=== PATIENT | female | born 1980 | race African-American/Black ===

== ENCOUNTER → 2019-12-26 11:52 | Outpatient (CLI) | payer OTHER, SELFPAY ==
[2019-12-27 10:15] LABS: COVID19 Sendout NOT DETECTED (Not Detect)
== END ==
PROVIDERS: Visit Provider Physician Assistant
DX: Z01.812 Encounter for preprocedural laboratory examination (principal)
CPT/HCPCS: 87635

== ENCOUNTER 2019-12-29 13:06 | Day surgery (SDC) | payer OTHER, SELFPAY ==
[2019-12-29] VITALS (12 sets, daily range): BP systolic 105–132; BP diastolic 65–86; PULSE 59–109; RESP 9–18; TEMP 36.2–37.1; O2SAT 98–100; BMI 47.0
--- NOTE | 2019-12-29 | DI.RAD.S_ITS ---
PROCEDURE: XR LUMBAR SPINE 2-3V INDICATIONS: L5-S1 MICRODISCECTOMY TECHNIQUE: 2 views of the lumbar spine were acquired. COMPARISON: None. FINDINGS: Spot fluoroscopic images demonstrating surgical instrument with the tip projecting at the L5-S1 level. Dictated by: Justin Palafox M.D. on 12/30/2019 at 9:08 Approved by: Justin Palafox M.D. on 12/30/2019 at 9:09
--- NOTE | 2019-12-29 13:47 | SUR.PREOP ---
Pt states pain/numbness occasional to left calf and foot. No difficulties walking at this time
[2019-12-29] MEDS: GABAPENTIN 300 MG CAPSULE PO (13:54)
[2019-12-29] MEDS: ACETAMINOPHEN 325 MG TABLET 975 MG PO (13:54)
[2019-12-29] MEDS: LACTATED RINGERS 1,000 ML 42 ML IV ×2 (13:54→17:18)
--- NOTE | 2019-12-29 15:38 | P.HP_ITS ---
History of Present Illness History of Present Illness Date Patient Seen: 12/29/19 Time Patient Seen: 15:38 Chief complaint: [id number] LUMBAR DISCECTOMY Narrative: Ms. No is a 39 yo F with hx of chronic back pain and lumbar radiculopathy failing over 1 year of conservative management including 3 ISH L- spine. Patient has limitation performing activity of daily living. Patient History Family & Social History Social History: household members significant other Tobacco & Substance use: Smoking Status Never smoker alcohol intake current alcohol intake frequency a few times a month Substance Use Type does not use Meds Home Medications and Allergies Home Medications Medication Instructions Recorded Confirmed Type acetaminophen 1,000 mg PO Q6H PRN 12/29/19 12/29/19 History cyclobenzaprine 10 mg PO DAILY 12/29/19 12/29/19 History meloxicam 7.5 mg PO DAILY 12/29/19 12/29/19 History Allergies Allergy/AdvReac Type Severity Reaction Status Date / Time ciprofloxacin Allergy Intermediate Hives Verified 12/29/19 13:21 Exam Vital Signs (past 8 hours): - 12/29/19 13:32 Temperature 98.7 F Pulse Rate 77 Respiratory Rate 16 Blood Pressure 132/84 Pulse Oximetry 100 Oxygen Delivery Method Room Air Oxygen Flow Rate 0 Neuro Other: Right S1 dermatome with decreased sensibility, + straight leg raise to RLE. Motor strength is 4/5 in right EHL and gastroc Assessment & Plan Assessment & Plan narrative: 39 yo F with right LE radiculopathy due to L5-S1 disc herniation. Patient failed over 1 year of conservative management. After discussing risks and benefits of treatment options, patient elected to proceed with L5-S1 microdiscectomy surgery.
[2019-12-29] MEDS: CEFAZOLIN 2 GM/100 ML FROZ.PIGGY IV (15:55)
--- NOTE | 2019-12-29 16:18 | SUR.OPER ---
Prone on spine table, head in foam head support, padded chest and pelvic supports, gel pad at knees, lower legs supported by pillows; nipples, genitalia and toes free of pressure, arms secured on foam padded arm boards at <90 degrees abduction. Tape over blanket at thigh secured to table.
[2019-12-29] MEDS: BUPIVACAINE 0.25% W/ EPI 30 ML VIAL INJ (16:26)
[2019-12-29] MEDS: methylPREDNISolone acet DEPO 40 MG/ML VIAL IM (16:35)
--- NOTE | 2019-12-29 16:35 | PM.OP.1 ---
Operative Date/Time/Diagnoses Date of procedure: 12/29/19 Time of procedure: 16:00 Pre-op diagnosis: 1. L5-S1 disc herniation 2. L5-S1 spinal stenosis with radiculopathy Post-op diagnosis: same Procedure & Clinicians Procedure: 1. L5-S1 left microdiscectomy 2. Utilization of microsurgical technique and operating microscope Same procedure as scheduled: Yes Indications: Patient has been having chronic back pain and worsening lumbar radiculopathy. Patient failed multiple conservative management with worsening pain weakness and numbness in her lower extremity. Patient has been having difficulty performing activity of daily living. After discussing risks benefits of treatment options, patient elected proceed with surgery. Surgeon: Kristine Corey Mycology Teacher: Beba Jernigan Click Yes if Unassisted: No Anesthesia Type: General Operative Notes Closure Type: primary Specimen(s): none sent Estimated Blood Loss (mL): 10 Blood products transfused: none Procedure in detail: Patient was seen in the preoperative area. Risks and benefits of the surgery was discussed with the patient. Informed consent was obtained from the patient and placed in the chart. Surgical site was marked. Patient was taken to the operative room. General anesthesia was administered. Prophylactic antibiotic was given to the patient less than 30 min before the incision was made. Patient was placed into a prone position on the Maged table. Patient's back was then prepped and draped in the sterile fashion. Time-out was performed at this time. Using AP and lateral C-arm imaging the interval between L5-S1 was identified and marked on patient's back. A 1 inch incision 1 in from midline was made on the left side. The fascia was incised in line with skin incision. Globus MARS retractors was placed inside the incision and docked onto the L5 lamina. Using microsurgical technique and operating microscope, a L5 laminotomy was performed using a Kerrison rongeur. Liagamentum flavum was resected at the site of the laminotomy. The disc space at L5-S1 was identified. Microdiscectomy was performed by incising the annulus with #11 blade. Microcurettes and pituitary was used to removed herniated disc fragments of disc from the epidural space. Patient was found have significant epidural lipomatosis which was carefully resected from the epidural space at L5-S1 level. The epidural lipomatosis were causing additional spinal stenosis. After the microdiskectomy was completed, the area medial lateral superior and inferior to the area of the microdiskectomy was inspected and explored using a micro curette. No other impinging structure was identified. The wound was then irrigated with sterile normal saline. 40 mg Depo-Medrol was placed into the epidural space. The deep fascia was closed with 1-0 Vicryl. The subcutaneous tissue was closed with 2-0 Vicryl. The skin was closed with skin vandana. Patient tolerated the procedure well. There were no complications. Patient was transferred recovery room in stable condition. Complications: none Post-operative Condition: stable Disposition: same day surgery Plan for aftercare: Discharge home
[2019-12-29] MEDS: ONDANSETRON 4 MG/2 ML INJ IV (16:59)
[2019-12-29] MEDS: fentaNYL 100 MCG/2 ML INJ IV ×4 (17:01→17:15)
[2019-12-29] MEDS: SCOPOLAMINE 1 PATCH TOP (17:13)
[2019-12-29] MEDS: HYDROMORPHONE 2 MG INJ IV ×2 (17:29→17:35)
--- NOTE | 2019-12-29 17:30 | SUR.PHASEI ---
Bedside report given to MARTINA Fink; Danae to assume care of pt at this time.
[2019-12-29] MEDS: HALOPERIDOL 5 MG/ML VIAL 1 MG IV (18:11)
[2019-12-29] MEDS: OXYCODONE IR 5 MG TABLET PO (18:20)
== END 2019-12-29 19:00 | disposition home or self-care (01) ==
PROVIDERS: Referring Provider Orthopaedic Surgery Orthopaedic Surgery of the Spine; Visit Provider Orthopaedic Surgery Orthopaedic Surgery of the Spine
PROC: (CPT 63030; principal; 2019-12-29 14:45)
DX: M51.17 Intervertebral disc disorders with radiculopathy, lumbosacral region (principal); M48.07 Spinal stenosis, lumbosacral region
CPT/HCPCS: 63030; 72100; 76000; J0330; J0690; J1030; J1100; J1170; J1630; J1885; J2250; J2405; J2704; J3010